=== PATIENT | male | born 1995 | race African-American/Black ===

== ENCOUNTER 2018-01-09 09:55 | Emergency (ER) | payer SELFPAY ==
[2018-01-09] MEDS: KETOROLAC 30 MG INJ IM (11:08)
== END 2018-01-09 12:30 | disposition home or self-care (01) ==
LOC: FTE 09:55
DX: M54.2 Cervicalgia (principal); M54.5 Low back pain; F17.210 Nicotine dependence, cigarettes, uncomplicated; R07.9 Chest pain, unspecified
CPT/HCPCS: 71046; 72040; 72100; 96372; 99284-25

== ENCOUNTER 2018-03-16 12:36 | Emergency (ER) | payer BC ==
[2018-03-16] MEDS: IBUPROFEN 600 MG TAB PO (15:05)
== END 2018-03-16 17:00 | disposition home or self-care (01) ==
LOC: FTE 12:36
DX: M76.811 Anterior tibial syndrome, right leg (principal); M76.812 Anterior tibial syndrome, left leg; I10 Essential (primary) hypertension
CPT/HCPCS: 73590; 99284-25

== ENCOUNTER 2018-03-23 15:22 | Emergency (ER) | payer BC | END 2018-03-23 18:02 | disposition home or self-care (01) | LOC: FTE 15:22 | DX: T79.6XXA Traumatic ischemia of muscle, initial encounter (principal); I10 Essential (primary) hypertension; E11.9 Type 2 diabetes mellitus without complications | CPT/HCPCS: 99283 ==

== ENCOUNTER 2018-12-31 03:30 | Inpatient (IN) | payer BC ==
[2018-12-31] MEDS: SOD CHLORIDE 0.9% 500 ML IV (03:58)
[2018-12-31] MEDS: LORAZEPAM 2 MG INJ IV (03:59)
[2018-12-31] MEDS: ONDANSETRON 4 MG INJ IV (03:59)
[2018-12-31 04:24] LABS: ADD MAN DIFF? NO
[2018-12-31 04:25] LABS: BASOPHIL # 0.1 10^3/ul (0.0-0.1); BASOPHILS % 0.6 % (0.0-2.0); EOSINOPHILS # 0.3 10^3/ul (0.0-0.5); EOSINOPHILS % 2.7 % (0.0-7.0); HEMATOCRIT 49.1 % (42.0-52.0); HEMOGLOBIN 15.5 g/dl (14.0-18.0); LYMPHOCYTES # 3.7 10^3/ul (0.8-2.9); LYMPHOCYTES % 36.4 % (15.0-51.0); MEAN CORPUSCULAR HEMOGLOBIN 27.4 pg (29.0-33.0); MEAN CORPUSCULAR HGB CONC 31.6 g/dl (32.0-37.0); MEAN CORPUSCULAR VOLUME 86.7 fl (82.0-101.0); MEAN PLATELET VOLUME 10.7 fl (7.4-10.4); MONOCYTE # 0.6 10^3/ul (0.3-0.9); MONOCYTES % 5.8 % (0.0-11.0); NEUTROPHIL # 5.5 10^3/ul (1.6-7.5); NEUTROPHILS % 54.1 % (39.0-77.0); PLATELET COUNT 324 10^3/UL (140-415); RED BLOOD COUNT 5.66 10^6/ul (4.70-6.10); RED CELL DISTRIBUTION WIDTH 12.2 % (11.5-14.5)
[2018-12-31 04:25] LABS: WHITE BLOOD COUNT 10.2 10^3/ul (4.8-10.8)
[2018-12-31 04:28] LABS: ADD UMIC NO; UR ASCORBIC ACID 40 mg/dL (NEGATIVE); UR BILIRUBIN (Dip) NEGATIVE (NEGATIVE); UR BLOOD (Dip) NEGATIVE (NEGATIVE); UR CLARITY CLEAR (CLEAR); UR COLOR YELLOW (YELLOW); UR GLUCOSE (Dip) NEGATIVE (NEGATIVE); UR KETONES (Dip) NEGATIVE (NEGATIVE); UR LEUKOCYTE ESTERASE (Dip) NEGATIVE Leu/ul (NEGATIVE); UR NITRITE (Dip) NEGATIVE (NEGATIVE); UR SPECIFIC GRAVITY (Dip) 1.016 (1.003-1.030); UR TOTAL PROTEIN (Dip) NEGATIVE (NEGATIVE); UR UROBILINOGEN (Dip) NEGATIVE (NEGATIVE)
[2018-12-31 04:41] LABS: ALANINE AMINOTRANSFERASE 78 IU/L (13-69); ALBUMIN 4.7 g/dl (3.3-4.9); ALBUMIN/GLOBULIN RATIO 1.34; ALKALINE PHOSPHATASE 96 IU/L (42-121); AMPHETAMINE/METHAMPHETAMINE Negative (NEGATIVE); ANION GAP 12 (5-13); ASPARTATE AMINO TRANSFERASE 72 IU/L (15-46); BARBITURATES Negative (NEGATIVE); BENZODIAZEPINES Negative (NEGATIVE); BILIRUBIN,INDIRECT 0.2 mg/dl (0-1.1); BILIRUBIN,TOTAL 0.2 mg/dl (0.2-1.3); BLOOD UREA NITROGEN 12 mg/dl (7-20); CALCIUM 10.1 mg/dl (8.4-10.2); CANNABINOIDS Negative (NEGATIVE); CARBON DIOXIDE 28 mmol/L (21-31); CHLORIDE 102 mmol/L (97-110); COCAINE Negative (NEGATIVE); CREATININE 1.12 mg/dl (0.61-1.24); Estimated GFR > 60 mL/min (>60); GLUCOSE 99 mg/dl (70-220); OPIATES Negative (NEGATIVE); POTASSIUM 4.3 mmol/L (3.5-5.1); SODIUM 142 mmol/L (135-144); TOTAL PROTEIN 8.2 g/dl (6.1-8.1)
[2018-12-31 04:56] LABS: ACETAMINOPHEN < 10.0 ug/ml (10.0-30.0); ETHANOL < 10.0 mg/dl (0-0); SALICYLATE < 1.0 mg/dl (5.0-30.0)
[2018-12-31] MEDS ORDERED: ACETAMINOPHEN 325 MG TAB PO (07:00)
[2018-12-31] MEDS ORDERED: NACL 0.9% 3 ML SYG IV (07:00)
[2018-12-31] MEDS ORDERED: ONDANSETRON 4 MG INJ IV (07:00)
[2018-12-31] MEDS ORDERED: LORAZEPAM 0.5 MG TAB PO (07:00)
[2018-12-31] MEDS ORDERED: ALBUTEROL/IPRATROPIUM (NEB) 3 ML AMP HHN (07:00)
[2018-12-31] MEDS: SOD CHLORIDE 0.9% 1,000 ML IV ×2 (07:12→08:51)
[2018-12-31] MEDS: HEPARIN 5,000 UNIT/1 ML VIAL SC (09:33)
[2018-12-31] MEDS: PROPRANOLOL 10 MG TAB PO (11:50)
== END 2018-12-31 12:35 | disposition home or self-care (01) | DRG 897 ==
LOC: E/R 03:30 → 6WM 05:02
DX: F13.239 Sedative, hypnotic or anxiolytic dependence with withdrawal, unspecified (principal); G25.1 Drug-induced tremor; T42.4X5A Adverse effect of benzodiazepines, initial encounter; Y92.89 Other specified places as the place of occurrence of the external cause; F41.9 Anxiety disorder, unspecified
CPT/HCPCS: 36415; 80053; 80307; 81003; 85025; 93005; 96374; 96375; 99285-25